=== PATIENT | female | born 1985 | race Caucasian/White ===

== ENCOUNTER 2018-11-13 12:57 | Outpatient (CLI) | payer BC | END 2018-11-13 12:58 | disposition home or self-care (01) | LOC: DTY/OP 12:57 | PROVIDERS: ATTEND Surgery | DX: E66.01 Morbid (severe) obesity due to excess calories (principal) | CPT/HCPCS: 97802 ==

== ENCOUNTER 2018-12-27 16:30 | Inpatient (IN) | payer BC ==
[2018-12-27 17:00] VITALS: BMI 50.2
[2019-01-03] MEDS ORDERED: Midazolam HCl 2 mg/2 ml Vial ONE (09:41)
[2019-01-03] MEDS ORDERED: Fentanyl 100 MCG/2 ML VIAL ONE ×2 (09:41→12:12)
[2019-01-03] MEDS ORDERED: Bupivacaine/Epinephrine 0.25% 30 ML VIAL ONE (09:57)
[2019-01-03] MEDS ORDERED: Ketorolac Tromethamine 30 MG/ML VIAL ONE (10:09)
[2019-01-03] MEDS ORDERED: Scopolamine 1.5 mg/72 hour Patch ONE (10:09)
[2019-01-03] MEDS ORDERED: Levofloxacin 500 mg/D5W 100 ml Premix Bag ONE (10:16)
[2019-01-03] MEDS ORDERED: Heparin 5,000 UNITS/ML VIAL ONE (10:16)
[2019-01-03] MEDS ORDERED: hydrALAZINE 20 MG/ML VIAL SLOW IVP PRN (11:56)
[2019-01-03] MEDS ORDERED: Dextrose 5% in Water 1,000 ML IV PRN (11:56)
[2019-01-03] MEDS ORDERED: Dextrose 50% Abboject 50 ML SYRINGE SLOW IVP PRN (11:56)
[2019-01-03] MEDS ORDERED: Hydrocodone-Acetamin 15 ML UDCUP PO PRN (11:56)
[2019-01-03] MEDS ORDERED: diphenhydrAMINE 50 MG/ML VIAL IVP PRN ×2 (11:56→12:10)
[2019-01-03] MEDS ORDERED: Promethazine HCl 25 MG/ML VIAL IM PRN ×2 (11:56→12:10)
[2019-01-03] MEDS ORDERED: Ondansetron PF 4 MG/2 ML Vial IVP PRN (11:56)
[2019-01-03] MEDS ORDERED: Promethazine HCl 25 MG/ML VIAL ONE (12:06)
[2019-01-03] MEDS ORDERED: Morphine CADD 1 MG/ML CADD IVPB PRN (12:10)
[2019-01-03] MEDS ORDERED: Naloxone HCl 0.4 mg/ml Vial IV PRN (12:10)
[2019-01-03] MEDS ORDERED: diphenhydrAMINE 25 MG CAP PO PRN (12:10)
[2019-01-03] MEDS ORDERED: diphenhydrAMINE 50 MG/ML VIAL IM PRN (12:10)
[2019-01-03] MEDS ORDERED: Ondansetron PF 4 MG/2 ML Vial ONE ×2 (12:12→15:18)
[2019-01-03] MEDS ORDERED: Communication Order-Pharmacy FS SCH (12:15)
[2019-01-03] MEDS ORDERED: Morphine Sulfate 100 MG in Dextrose 5% in Water 98 ML IV SCH (13:00)
[2019-01-03] MEDS: Ketorolac Tromethamine 30 MG/ML VIAL IVP SCH ×3 (14:13→23:25)
[2019-01-03] MEDS: D5 1/2 NS w/20 mEq KCL 1,000 ML IV SCH ×2 (14:13→23:28)
--- NOTE | 2019-01-03 15:09 | OP ---
DATE OF PROCEDURE: 01/03/2019 PREOPERATIVE DIAGNOSIS: Morbid obesity. PROCEDURES PERFORMED: Laparoscopic sleeve gastrectomy and esophagogastroscopy. INDICATIONS: A 33-year-old female, morbidly obese, who has attempted multiple weight loss programs without success. FINDINGS: A 38-[place] bougie used. DESCRIPTION OF PROCEDURE: After informed consent was obtained, the patient was taken to the operating room and given general endotracheal anesthesia. She was placed in supine position. Abdomen was prepped and draped in usual fashion. Local anesthesia infiltrated subcutaneously and deep. A 12 mm incision was performed approximately 8 inches above the xiphoid slightly to the left. Veress needle inserted. Drop test performed. Pneumoperitoneum was created to a volume of 2 L of carbon dioxide. Utilizing a bladeless 12 mm trocar and 0-degree laparoscope, direct visual entry into the abdominal cavity was performed. Pneumoperitoneum was created to a pressure of 15 mmHg and the patient was placed in steep reverse Trendelenburg position. Suzi liver retractor inserted. Left lobe of the liver retracted superiorly. Pylorus identified. A 12 mm port placed on the right beneath it and two 12s were placed in left subcostal. The omentum was taken off the greater curvature 5 cm from the pylorus utilizing the LigaSure. Short gastrics divided with the LigaSure. I had to put an extra 5 mm port because of her abdominal wall thickness in order to reach the angle of His. The left crura were defined with the LigaSure. Then, the 38-[place] bougie was inserted directed into the antrum. The linear 60 mm green load stapler used to divide the antrum to the bougie, gold load along the bougie, series of blues through the angle of His. Intraoperative endoscopy was performed. The videoendoscope inserted under direct vision and advanced into the sleeve. The staple line was inspected. There was no bleeding. Staple line then tested by inflating the new stomach with pressurized air and water, there was no air leak. Stomach decompressed. Scope removed. Remnant stomach removed from the abdomen through the left lateral port site. The fascia closed with 0 Vicryl suture and the GraNee needle. Trocars and retractors removed. Skin closed with interrupted 4-0 Rapide. Dermabond applied. The patient tolerated the procedure well, transferred to Recovery in good condition. Sponge and needle count verified correct x2. Job ID: [id number]
[2019-01-03] MEDS ORDERED: Lidocaine 1% PF 5 ML VIAL ONE (15:18)
[2019-01-03] MEDS ORDERED: PROPOFOL 200 MG/20 ML VIAL ONE (15:18)
[2019-01-03] MEDS ORDERED: Dexamethasone 20 MG/5 ML VIAL ONE (15:18)
[2019-01-03] MEDS ORDERED: Glycopyrrolate 0.2 MG/ML 5 ML SYRINGE ONE (15:18)
[2019-01-03] MEDS ORDERED: Rocuronium Bromide 10 MG/ML (10ML VIAL) ONE (15:18)
[2019-01-03] MEDS: Ondansetron PF 4 MG/2 ML Vial IVP PRN ×2 (17:04→23:26)
[2019-01-04] MEDS: Ketorolac Tromethamine 30 MG/ML VIAL IVP SCH ×2 (05:52→12:01)
[2019-01-04] MEDS: Ondansetron PF 4 MG/2 ML Vial IVP PRN (05:53)
[2019-01-04 05:58] LABS: #Lymphocytes 1.6 thou/uL (1.20-3.40); #Neutrophils 14.3 thou/uL (1.40-6.50); %Lymphocytes 9.2 % (21.0-51.0); %Neutrophils 84.7 % (42.0-75.0); Hemoglobin 12.3 g/dL (12.0-16.0); Mean Corpuscular HGB CONC 32.4 g/dL (32.0-36.0); Mean Corpuscular Hemoglobin 26.7 pg (27.0-31.0); Mean Corpuscular Volume 82.5 fL (78.0-98.0); Mean Platelet Volume 8.6 fL (7.4-10.4); Platelet Count 244 thou/uL (130-400); White Blood Cell (WBC) Count 16.8 thou/uL (4.8-10.8)
[2019-01-04] MEDS: D5 1/2 NS w/20 mEq KCL 1,000 ML IV SCH ×2 (06:02→12:09)
[2019-01-04 06:21] LABS: Anion Gap 11 mmol/L (10-20); BUN (Urea Nitrogen) 4 mg/dL (7.0-18.7); Calc. Creatinine Clearance 305 mL/min (70-130); Carbon Dioxide 22 mmol/L (22-29); Chloride 106 mmol/L (98-107); Estimated GFR-MDRD Greater than 90; Glucose 125 mg/dL (70-105); Potassium 4.8 mmol/L (3.5-5.1); Sodium 134 mmol/L (136-145)
[2019-01-04] MEDS ORDERED: Enoxaparin Sodium 40 MG/0.4 ML SYRINGE SC SCH (09:00)
[2019-01-04] MEDS ORDERED: Pantoprazole 40 MG VIAL IVP SCH (09:00)
--- NOTE | 2019-01-04 10:27 | RAD ---
Exam: 15 mL Gastrografin swallow HISTORY: Postop day 1. Gastric sleeve. Bariatric surgery. FINDINGS: Patient was administered 15 mL Gastrografin which passed without difficulty from the esopha zeb into the residual stomach and on into the proximal small bowel. No leak or extravasation. IMPRESSION: No leak or extravasation
[2019-01-04 12:25] VITALS: BP 140/83; TEMP 97.1
== END 2019-01-04 13:35 | disposition home or self-care (01) | DRG 621 ==
LOC: SURG A 01-03 07:00 → SURG B 01-03 12:15
PROVIDERS: ADMIT Surgery; ATTEND Surgery
PROC: 0DB64Z3 Excision of Stomach, Percutaneous Endoscopic Approach, Vertical (ICD-10-PCS; principal; 2019-01-03)
PROC: 0DJ68ZZ Inspection of Stomach, Via Natural or Artificial Opening Endoscopic (ICD-10-PCS; 2019-01-03)
DX: E66.01 Morbid (severe) obesity due to excess calories (principal); Z68.43 Body mass index [BMI] 50.0-59.9, adult; Z88.1 Allergy status to other antibiotic agents
CPT/HCPCS: 36415; 74241; 80048; 85025; 88307; 88312; 94760; C9113; J0690; J1100; J1644; J1650; J1885; J1956; J2001; J2250; J2274; J2405; J2550; J2704; J3010; J7070

== ENCOUNTER 2018-12-27 16:41 | Outpatient (CLI) | payer BC ==
--- NOTE | 2018-12-27 17:53 | RAD ---
2 views chest. HISTORY: Preoperative chest radiograph PA and lateral views of the chest obtained. The lungs are well aerated. No evidence of active intrathoracic disease seen. No evidence of effusion s, pneumonia or pneumothorax seen. IMPRESSION: Unremarkable 2 views chest.
[2018-12-27 17:57] LABS: #Basophils 0.1 thou/uL (0.0-0.2); #Eosinphils 0.1 thou/uL (0.0-0.7); #Lymphocytes 3.6 thou/uL (1.20-3.40); #Monocytes 0.7 thou/uL (0.11-0.59); #Neutrophils 7.3 thou/uL (1.40-6.50); %Basophils 0.6 % (0.0-1.0); %Eosinophils 1.1 % (0.0-10.0); %Lymphocytes 30.5 % (21.0-51.0); %Neutrophils 61.8 % (42.0-75.0); Hemoglobin 13.5 g/dL (12.0-16.0); Mean Corpuscular HGB CONC 33.4 g/dL (32.0-36.0); Mean Corpuscular Hemoglobin 27.1 pg (27.0-31.0); Mean Platelet Volume 8.1 fL (7.4-10.4); Platelet Count 261 thou/uL (130-400); RBC Distribution Width 13.8 % (11.5-14.5); Red Blood Cell (RBC) Count 4.98 mill/uL (4.20-5.40); White Blood Cell (WBC) Count 11.8 thou/uL (4.8-10.8)
[2018-12-27 17:59] LABS: BHCG - Serum Negative (NEGATIVE); Pregs Control Background? CLEAR/WHITE (CLR/WHITE); Pregs Control Bar Appear? YES (CONTROL BAR)
[2018-12-27 18:12] LABS: Hemoglobin A1c 5.4 % (4.0-6.0)
[2018-12-27 18:16] LABS: ALT (SGPT) 21 U/L (8-55); AST (SGOT) 19 U/L (5-34); Albumin 4.2 g/dL (3.5-5.0); Alkaline Phosphatase 89 U/L (40-150); Anion Gap 13 mmol/L (10-20); BUN (Urea Nitrogen) 12 mg/dL (7.0-18.7); Bilirubin, Direct 0.3 mg/dL (0.1-0.3); Bilirubin, Total 0.6 mg/dL (0.2-1.2); Calc. Creatinine Clearance 0 mL/min (70-130); Calcium 9.8 mg/dL (7.8-10.44); Carbon Dioxide 25 mmol/L (22-29); Chloride 102 mmol/L (98-107); Estimated GFR-MDRD Greater than 90; Glucose 82 mg/dL (70-105); Potassium 3.9 mmol/L (3.5-5.1); Protein, Total 7.2 g/dL (6.0-8.3); Sodium 136 mmol/L (136-145)
--- NOTE | 2018-12-29 13:50 | EKG ---
Test Reason : Blood Pressure : / mmHG Vent. Rate : 089 BPM Atrial Rate : 089 BPM P-R Int : 148 ms QRS Dur : 092 ms QT Int : 376 ms P-R-T Axes : 002 032 001 degrees QTc Int : 457 ms Normal sinus rhythm Cannot rule out Anterior infarct , age undetermined Abnormal ECG No previous ECGs available Confirmed by DR. Bobo MCCAIN ([id number]) on 12/29/2018 1:49:47 PM Referred By: [facility]MA Confirmed By:DR. Bobo MCCAIN
== END 2018-12-27 16:42 | disposition home or self-care (01) ==
LOC: LABBT 16:41
PROVIDERS: ATTEND Surgery
DX: Z01.818 Encounter for other preprocedural examination (principal); E66.01 Morbid (severe) obesity due to excess calories
CPT/HCPCS: 71046; 80053; 80076; 83036; 84703; 85025; 93005; 93010